=== PATIENT | female | born 2000 | race Two or more races ===

== ENCOUNTER 2024-02-23 19:04 | Emergency (ER) | payer OTHER ==
[~2024-02-23] VITALS: Ht 152.4 cm; Wt 56.7 kg
[2024-02-23] MEDS ORDERED: ONDANSETRON HCL 2 MG/ML VIAL IV ONE (21:00)
[2024-02-23] MEDS ORDERED: CIPROFLOXACIN IN 5 % DEXTROSE 400 MG/200 ML PIGGYBAG IV ONE (21:00)
[2024-02-23] MEDS ORDERED: FAMOTIDINE/PF 20 MG/2 ML VIAL IV ONE (21:00)
[2024-02-23] MEDS ORDERED: 0.9 % SODIUM CHLORIDE 500 ML IV ONE (21:15)
[2024-02-23 21:34] LABS: HEMATOCRIT 37.5 % (36.0-45.00); HEMOGLOBIN 12.9 g/dL (12.0-15.00); MEAN CELL VOLUME 86.4 fL (80.00-100.00); MEAN CORPUSCULAR HEMOGLOBIN 29.8 pg (27.00-32.0); MEAN CORPUSCULAR HGB CONC 34.4 g/dl (32.0-36.0); PLATELET COUNT 384 K/uL (150-450); RED BLOOD COUNT 4.34 M/uL (4.00-6.00); RED CELL DISTRIBUTION WIDTH 13.3 % (11.5-14.5)
[2024-02-23 21:52] LABS: ALBUMIN 3.9 gm/dL (3.4-5.0); BILIRUBIN TOTAL 0.32 mg/dL (0.3-1.2); CALCIUM 8.9 mg/dL (8.5-10.1); CREATININE SERUM 0.6 mg/dL (0.55-1.02); GFR 125.01; GLOBULINA 4.4 G/DL (2.4-3.5); TOTAL PROTEIN 8.3 gm/dL (6.4-8.2)
[2024-02-23 21:57] LABS: POTASSIUM 2.96 mEq/L (3.5-5.1)
[2024-02-23] MEDS ORDERED: POTASSIUM CHLORIDE IN 0.9%NACL 1,000 ML IV ONE (22:00)
[2024-02-23] MEDS ORDERED: POTASSIUM CHLORIDE 10 MEQ CAPSULE PO ONE (22:15)
[2024-02-23] MEDS ORDERED: RINGERS SOLUTION,LACTATED 1,000 ML IV ONE (22:15)
[2024-02-23 22:26] LABS: URINE APPEARANCE Clear; URINE BILIRRUBIN Negative (NEGATIVE); URINE BLOOD Negative; URINE COLOR Yellow; URINE GLUCOSE Negative (NEGATIVE); URINE KETONE Negative (NEGATIVE); URINE LEUKOCYTE Negative; URINE NITRATE Negative; URINE PROTEIN Negative (NEGATIVE); URINE UROBILINOGEN 0.2 E.U./dl
[2024-02-23 22:28] LABS: URINE BACTERIA 115.8 uL (0.0-1933); URINE EPITHELIAL CELLS 7.8 uL (0.0-38.8); URINE WBC 9.7 uL (0.0-23.2)
[2024-02-23] MEDS ORDERED: KETOROLAC TROMETHAMINE 30 MG VIAL IV ONE (23:30)
[2024-02-23] MEDS ORDERED: METRONIDAZOLE500 MG PO (23:41)
[2024-02-23] MEDS ORDERED: PEPCID AC20 MG PO (23:41)
[2024-02-23] MEDS ORDERED: LEVSIN/SL0.125 MG SL (23:41)
[2024-02-23] MEDS ORDERED: INTESTINEX680 M1 PO (23:41)
[2024-02-23] MEDS ORDERED: CIPRO500 MG PO (23:41)
[2024-02-23] MEDS ORDERED: DIPHENOXYLATE HCL/ATROPINE 1 UDTAB TABLET PO ONE (23:45)
== END 2024-02-24 01:11 | disposition home or self-care (01) ==
LOC: ER 19:06
PROVIDERS: Nurse Practitioner Family
DX: E87.6 Hypokalemia (principal); E86.0 Dehydration; R19.7 Diarrhea, unspecified; R10.9 Unspecified abdominal pain; I10 Essential (primary) hypertension